=== PATIENT | female | born 1980 | race Caucasian/White ===

== ENCOUNTER → 2019-09-08 11:00 | Outpatient (BNVA) | payer BC, SELFPAY | PROVIDERS: Visit Provider Nurse Practitioner Family | DX: Z79.899 Other long term (current) drug therapy (principal); R53.83 Other fatigue; E78.2 Mixed hyperlipidemia; I10 Essential (primary) hypertension; E55.9 Vitamin D deficiency, unspecified; D64.9 Anemia, unspecified | CPT/HCPCS: 80061; 81001; 82306; 83036; 83540; 83550; 84439; 84443; 84481 ==

== ENCOUNTER 2019-12-04 11:08 | Outpatient (CLI) | payer BC, SELFPAY ==
[2019-12-04 11:20] VITALS: BMI 39.9
--- NOTE | 2019-12-04 11:32 | ECG_ITS ---
NAME OF STUDY: DOBUTAMINE STRESS ECHOCARDIOGRAM INDICATION: Chest Pain, family h/o premature CAD FINDINGS: 1. At the baseline, the patient's blood pressure was 130/72 mm Hg, oxygen saturation of 97% with a heart rate of 72 beats per minute. The electrocardiogram showed normal sinus rhythm with normal ST-Ts. The chest examination revealed normal breath sounds with no rales or rhonchi. The CVS examination revealed normal heart sounds with no S3 or S4. 2. The Dobutamine was infused over 4 minutes. The maximum heart rate obtained was 170 beats per minute. The patient attained 94% of the maximum predicted heart rate. The blood pressure at the end of the infusion was 183/79 mmHg. Patient did not have any chest pain or any significant electrocardiogram changes with the Dobutamine infusion. The physical examination remained unchanged. No arrhythmias were seen on the monitor. 3. The echocardiogram during the recovery phase also did not reveal any new changes. CONCLUSIONS: 1. Normal electrocardiogram response to Dobutamine infusion. 2. Normal blood pressure and heart rate response to Dobutamine infusion. 3. No Dobutamine-induced chest pain or cardiac arrhythmia. 4. Echocardiographic portion of the study will be reported separately. Electronically Signed On 12-06-2019 9:05:34 CDT by Zaida Heath M.D. [email or web address]
--- NOTE | 2019-12-04 11:37 | USCV_ITS ---
Sheba Bernal Age: 39 Gender: F : 1980 Exam Date: 12/04/2019 11:51 Ordering Phys: Zaida Heath MD [email or web address]) Technologist: Terrance Vaughan Exam Location: [facility] – [place] Indication: CHEST PAIN Rhythm: Sinus Patient History: FAMILY H/O CAD, DM, HTN, OBESITY, FORMER SMOKER Cardiac Medications: CCB Medications in past 24 hours: NONE Contrast: Stress Results Protocol: Steve Total dose(mL): Exercise Duration (min:sec): 4.04 METS: 7.0 Resting HR: 92 Resting BP: 130 / 72 Peak HR: 170 Peak BP: 183 / 79 Max Predicted HR: 179 95 % Max Predicted HR Target HR: 152 Double Product: 97162 Stress Summary: SHORTNESS OF BREATH THAT RESOLVED QUICKLY DURING RECOVERY BP Response: NORMAL Reason for Termination: TARGET HR REACHED Cardiac Symptoms: SOB ECG Analysis Resting ECG: Stress ECG: Arrhythmia: MEASUREMENTS (Male/Female) Normal Values FINDINGS 1. At the baseline, the patient's blood pressure was 130/72 mm Hg, oxygen saturation of 97% with a heart rate of 72 beats per minute. The electrocardiogram showed normal sinus rhythm with normal ST-Ts. The chest examination revealed normal breath sounds with no rales or rhonchi. The CVS examination revealed normal heart sounds with no S3 or S4. 2. The Dobutamine was infused over 4 minutes. The maximum heart rate obtained was 170 beats per minute. The patient attained 94% of the maximum predicted heart rate. The blood pressure at the end of the infusion was 183/79 mmHg. Patient did not have any chest pain or any significant electrocardiogram changes with the Dobutamine infusion. The physical examination remained unchanged. No arrhythmias were seen on the monitor. 3. At the baseline, the patient's echocardiogram revealed normal cardiac chamber sizes with normal LV ejection fraction of 60%. Segmental wall motion analysis revealed no regional wall motion abnormality. There were no intracardiac masses. 4. With the low and the peak Dobutamine infusion, there was good augmentation of all the segments with no Dobutamine-induced wall motion abnormalities. 5. During the recovery phase, the patient did not have any symptoms or any EKG changes. 6. The echocardiogram during the recovery phase also did not reveal any new changes. The echocardiogram during the recovery phase also did not reveal any new changes. CONCLUSIONS 1. Normal electrocardiogram response to Dobutamine infusion. 2. Normal echocardiographic response to Dobutamine infusion. 3. No Dobutamine-induced chest pain or cardiac arrhythmia. 4. Clinical correlation is recommended. Zaida Heath MD (Electronically Signed) Final Date: 06 Dec 2019 09:43 S
[2019-12-04 12:28] VITALS: BP 133/76; PULSE 95
== END 2019-12-04 11:09 | disposition home or self-care (01) ==
LOC: CDL 11:11
PROVIDERS: Visit Provider Internal Medicine Cardiovascular Disease
DX: R07.9 Chest pain, unspecified (principal); Z82.49 Family history of ischemic heart disease and other diseases of the circulatory system
CPT/HCPCS: 93017; 93350

== ENCOUNTER → 2021-03-21 16:05 | Outpatient (BNVA) | payer BC, SELFPAY | PROVIDERS: Visit Provider Nurse Practitioner Family | DX: Z01.419 Encounter for gynecological examination (general) (routine) without abnormal findings (principal); I10 Essential (primary) hypertension; D64.9 Anemia, unspecified; E78.2 Mixed hyperlipidemia; E55.9 Vitamin D deficiency, unspecified; E11.9 Type 2 diabetes mellitus without complications; R07.81 Pleurodynia; M50.30 Other cervical disc degeneration, unspecified cervical region; Z12.39 Encounter for other screening for malignant neoplasm of breast | CPT/HCPCS: 80053; 80061; 81003; 82306; 82607; 82746; 83036; 83540; 83735; 84439; 84443; 85025 ==

== ENCOUNTER 2021-03-24 12:48 | Outpatient (CLI) | payer BC, SELFPAY ==
--- NOTE | 2021-03-24 13:02 | XR_ITS ---
WS: [id number] Exam: XR ribs RT 2V* [id number] Date/Time of Exam: 03/24/2021 1:03 PM Reason For Exam: R07.81 - Pleurodynia No sign of rib fracture. The right lung is fully expanded and clear. No pleural or pulmonary reactive changes. XR/XR ribs RT 2V* [id number] IMPRESSION: 1. Negative right rib study. No pneumothorax.
--- NOTE | 2021-03-24 13:02 | XR_ITS ---
WS: [id number] Exam: XR cervical spine fl/ex [id number] Date/Time of Exam: 03/24/2021 1:03 PM Reason For Exam: M50.30 - Other cervical disc degeneration, unspecified ce... No fracture or dislocation. The odontoid is intact. Paraspinal soft tissues are unremarkable. There i s straightening. No flexion or extension instability is seen. XR/XR cervical spine fl/ex [id number] IMPRESSION: 1. Straightening of the C-spine. No fracture or malalignment. 2. No flexion or extension instability.
== END 2021-03-24 12:49 | disposition home or self-care (01) ==
PROVIDERS: Visit Provider Nurse Practitioner Family
DX: M50.30 Other cervical disc degeneration, unspecified cervical region (principal); R07.81 Pleurodynia
CPT/HCPCS: 71100; 72040

== ENCOUNTER → 2021-07-06 08:31 | Outpatient (BNVA) | payer BC, SELFPAY | PROVIDERS: PCP Nurse Practitioner Family; Referring Provider Nurse Practitioner Family; Visit Provider Obstetrics & Gynecology | DX: Z12.4 Encounter for screening for malignant neoplasm of cervix (principal) | CPT/HCPCS: 87624 ==

== ENCOUNTER 2021-12-20 10:14 | Outpatient (CLI) | payer BC, SELFPAY ==
--- NOTE | 2021-12-20 11:00 | MR_ITS ---
WS: [id number] MRI THORACIC SPINE WITHOUT CONTRAST TECHNIQUE: Sagittal T1, T2 and STIR imaging. Axial T2 imaging. Noncontrast imaging obtained. CLINICAL INFORMATION: M51.34 - Other intervertebral disc degeneration, thoracic... COMPARISON: None. FINDINGS: Mild thoracic curve. Mild thoracic kyphosis. Hypertrophic changes in the mid and lower thoracic spine . Mild chronic anterior wedging in the mid thoracic spine. No acute compression fractures. Cord signa l is normal. Tiny shallow central protrusions more prominent at T4-T5, T6-T7, and T8-T9 with slight e ffacement of ventral thecal sac. No significant central canal stenosis. Mild facet arthropathy in the lower thoracic spine. Mild LEFT T6-T7 and LEFT T8-T9 bony foraminal narrowing. Normal caliber thoracic aorta. Adrenal glands are normal. MR/MR thoracic spin wo con* [id number] IMPRESSION: 1. Mild thoracic curve. Mild thoracic kyphosis. 2. No acute compression fractures. Cord signal is normal. No significant centr al canal stenosis. 3. Mild chronic anterior wedging in the mid thoracic spine at T8 and T9. 4. Small central protrusions the mid thoracic spine most prominent at T8-T9 wi th slight effacement of the ventral thecal sac. 5. Mild LEFT T6-T7 and LEFT T8-T9 bony foraminal narrowing. 6. Mild facet arthropathy in the lower thoracic spine.
== END 2021-12-20 10:15 | disposition home or self-care (01) ==
LOC: RAD 10:15
PROVIDERS: PCP Nurse Practitioner Family; Visit Provider Family Medicine
DX: M51.34 Other intervertebral disc degeneration, thoracic region (principal); M51.24 Other intervertebral disc displacement, thoracic region
CPT/HCPCS: 72146

== ENCOUNTER → 2022-01-05 10:10 | Outpatient (BNVA) | payer BC, SELFPAY | PROVIDERS: PCP Nurse Practitioner Family; Referring Provider Nurse Practitioner Family; Visit Provider Orthopaedic Surgery | DX: M51.24 Other intervertebral disc displacement, thoracic region (principal); M54.9 Dorsalgia, unspecified | CPT/HCPCS: 72072; 72110 ==

== ENCOUNTER 2022-03-16 14:07 | Outpatient (CLI) | payer BC, SELFPAY ==
--- NOTE | 2022-03-16 15:15 | MR_ITS ---
WS: [id number] MRI LUMBAR SPINE NONCONTRAST TECHNIQUE: Sagittal T1, T2 and STIR imaging. Axial T1 and T2 imaging. CLINICAL INFORMATION: pain COMPARISON: None. FINDINGS: Mild lumbar curve. No acute compression. No high-grade central canal stenosis. L1-L2: Mild facet arthropathy. Spinal canal and foramen are patent. L2-L3: No significant disc bulging. Mild facet arthropathy. Spinal canal and foramen are patent. L3-L4: Mild annular bulging. Mild to moderate facet arthropathy. Spinal canal and foramen are patent. L4-L5: Eccentric disc bulging with mild bilateral foraminal narrowing. Moderate facet arthropathy wit h small facet effusions. Spinal canal is patent. L5-S1: No significant disc bulging. Moderate facet arthropathy. Spinal canal and foramen are patent. Small facet effusions. Partially visualized lobulation along the dorsal uterus suspicious for fibroid measuring 2.7 CCM. Thi s can be further evaluated with pelvic ultrasound. MR/MR lumbar spine wo con* [id number] IMPRESSION: 1. Mild lumbar curve. No acute compression. No high-grade central canal stenos is. 2. Small bilateral foraminal protrusions L4-L5 with mild bilateral foraminal n arrowing. 3. Moderate facet arthropathy L4-L5 and L5-S1 with small facet effusions. 4. Suspected fibroid along the dorsal fundal uterus. This can be further evalu ated with ultrasound.
== END 2022-03-16 14:08 | disposition home or self-care (01) ==
PROVIDERS: PCP Nurse Practitioner Family; Visit Provider Orthopaedic Surgery
DX: M51.26 Other intervertebral disc displacement, lumbar region (principal); M47.816 Spondylosis without myelopathy or radiculopathy, lumbar region; M47.817 Spondylosis without myelopathy or radiculopathy, lumbosacral region
CPT/HCPCS: 72148

== ENCOUNTER → 2022-06-12 10:30 | Outpatient (BNVA) | payer BC, SELFPAY | PROVIDERS: PCP Nurse Practitioner Family; Visit Provider Nurse Practitioner | DX: E78.2 Mixed hyperlipidemia (principal); E11.9 Type 2 diabetes mellitus without complications; D25.9 Leiomyoma of uterus, unspecified | CPT/HCPCS: 80053; 80061; 82306; 83036; 84443; 85025 ==

== ENCOUNTER → 2022-06-14 14:21 | Outpatient (BNVA) | payer BC, SELFPAY | PROVIDERS: PCP Nurse Practitioner Family; Visit Provider Anesthesiology Pain Medicine | DX: M47.816 Spondylosis without myelopathy or radiculopathy, lumbar region (principal); E11.9 Type 2 diabetes mellitus without complications; M54.9 Dorsalgia, unspecified | CPT/HCPCS: 36416; 82962 ==

== ENCOUNTER → 2023-04-17 10:28 | Outpatient (BNVA) | payer BC, SELFPAY | PROVIDERS: PCP Nurse Practitioner Family; Visit Provider Nurse Practitioner Family | DX: E11.9 Type 2 diabetes mellitus without complications (principal); D25.9 Leiomyoma of uterus, unspecified; M77.8 Other enthesopathies, not elsewhere classified; M47.816 Spondylosis without myelopathy or radiculopathy, lumbar region; M51.24 Other intervertebral disc displacement, thoracic region | CPT/HCPCS: 80053; 83036; 85025 ==

== ENCOUNTER 2023-05-01 11:51 | Outpatient (CLI) | payer BC, SELFPAY ==
--- NOTE | 2023-05-01 12:30 | US_ITS ---
WS: [id number] US pelv w/transvag [id number] HISTORY: D25.9 - Leiomyoma of uterus, unspecified COMPARISON: None available. Uterus: 9.5 cm x 6.2 cm x 4.8 cm. Mildly enlarged anteverted uterus. There is a hypoechoic mass exophytic from the RIGHT lateral uterus measuring 2.8 x 2.5 x 2.3 cm. There is an additional hypoechoic mass with shadowing along the lower LEFT uterine segment measuring 3.0 x 3.8 x 3.3 cm. Endometrium: 0.6 cm. Normal Right ovary: 3.3 cm x 2.6 cm x 2.6 cm. Normal size and vascularity, no cystic or solid masses. Left ovary: Not visualized. No free fluid in the cul-de-sac. IMPRESSION: 1. Fibroid uterus. 2 fibroids are identified. Largest along the lower LEFT uterine segment measuring 3.0 x 3.8 x 3.3 cm. 2. Normal endometrium.
== END 2023-05-01 11:52 | disposition home or self-care (01) ==
LOC: RAD 11:56
PROVIDERS: PCP Nurse Practitioner Family; Visit Provider Nurse Practitioner Family
DX: D25.9 Leiomyoma of uterus, unspecified (principal)
CPT/HCPCS: 76830; 76856

== ENCOUNTER → 2023-05-11 10:53 | Outpatient (BNVA) | payer BC, SELFPAY | PROVIDERS: PCP Nurse Practitioner Family; Visit Provider Nurse Practitioner Women's Health | DX: Z01.419 Encounter for gynecological examination (general) (routine) without abnormal findings (principal); N93.9 Abnormal uterine and vaginal bleeding, unspecified | CPT/HCPCS: 84146; 84443; 87624 ==

== ENCOUNTER 2023-05-29 10:51 | Outpatient (CLI) | payer BC, SELFPAY ==
--- NOTE | 2023-05-29 10:55 | MM_ITS ---
WS: [id number] BILATERAL 3D TOMOSYNTHESIS DIGITAL SCREENING MAMMOGRAPHY WITH CAD CLINICAL INFORMATION: Z12.31 - Encounter for screening mammogram for malignant ... HISTORY: Screening mammogram. No current complaints. COMPARISON: Baseline TECHNIQUE: Bilateral CC and MLO views. FINDINGS: Scattered fibroglandular densities bilaterally. No suspicious focal mass, asymmetry, calcifications, or architectural distortion. No evidence of malignancy. IMPRESSION: MM/[place] [id number] BI-RADS: 1-Negative FOLLOW UP: 1 Year Follow-up Recommend return to annual screening mammography.
== END 2023-05-29 10:52 | disposition home or self-care (01) ==
LOC: RAD 10:52
PROVIDERS: PCP Nurse Practitioner Family; Visit Provider Nurse Practitioner Women's Health
DX: Z12.31 Encounter for screening mammogram for malignant neoplasm of breast (principal)
CPT/HCPCS: 77063; 77067

== ENCOUNTER → 2023-06-12 09:28 | Outpatient (BNVA) | payer BC, SELFPAY | PROVIDERS: PCP Nurse Practitioner Family; Visit Provider Nurse Practitioner Women's Health | DX: Z01.818 Encounter for other preprocedural examination (principal) | CPT/HCPCS: 88305 ==

== ENCOUNTER → 2024-01-07 16:10 | Outpatient (BNVA) | payer BC, SELFPAY | PROVIDERS: PCP Nurse Practitioner Family; Visit Provider Nurse Practitioner Family | DX: I10 Essential (primary) hypertension (principal); R79.89 Other specified abnormal findings of blood chemistry; E78.2 Mixed hyperlipidemia; Z79.899 Other long term (current) drug therapy; D64.9 Anemia, unspecified | CPT/HCPCS: 80053; 80061; 81003; 82306; 82607; 83036; 83550; 84443; 85025 ==

== ENCOUNTER 2024-02-19 15:42 | Observation (INO) | payer BC, SELFPAY ==
--- NOTE | 2024-02-11 10:44 | P.ANESASSM_ITS ---
Pre-Anesthetic Assessment Height/Weight: Height 1.63 m Operation Date: 02/19/24 10:40 Proposed Procedures p Total Vaginal Hysterectomy 30485, 83010, 60687, N93.9, D25.2, N39.46(Not Applicable) - Roberto Carlos De La Garza MD s Anterior Repair Anterior Colporrhaphy(Not Applicable) - Roberto Carlos De La Garza MD s Sling(Not Applicable) - Roberto Carlos De La Garza MD Social occasional vape pack(s) per day Exam alert, oriented x 3, clear to auscultation bilaterally and regular rate & rhythm Airway Submandibular: within normal limits Cervical ROM: within normal limits Mallampati: Class II Comments: Comments: small chin History/ROS No significant history except as noted Pulmonary None reported CV/HEM Hypertension None reported Hepatic None reported GI None reported Metabolic Diabetes Mellitus diet and exercise controlled Neuropsych None reported Anesthetic Plan ASA status: 2 Anesthesia: General Risk of > 500 ml blood loss (7ml/kg in children): No Medications/Allergies Home Medications Medication Instructions Recorded Confirmed Last Taken Type amlodipine 5 mg tablet 5 mg PO DAILY 07/03/23 02/11/24 02/11/24 History norethindrone acetate 5 mg tablet 5 mg PO DAILY #30 tabs 09/20/23 02/11/24 02/11/24 Rx fluticasone propionate 50 1 spray intranasal DAILY PRN 01/10/24 02/11/24 Unknown Rx mcg/actuation nasal allergy symptoms 10 days #16 grams spray,suspension Allergies Allergy/AdvReac Type Severity Reaction Status Date / Time codeine Allergy Mild rash-can Verified 01/10/24 13:26 [facility] Medical History (Updated 01/23/24 @ 20:28 by GEORGIA Barreto) Eustachian tube dysfunction Anemia High total iron binding capacity Medication management Lipoma of scalp Acute bacterial sinusitis Otitis media Migraine No pertinent past medical history Denies asthma, seizures, DVT/PE PCP: GE[place]IA Tello Chronic neck pain DM II (diabetes mellitus, type II), controlled Diagnosed in 2019 with a hemoglobin A1c of 6.3. She states that symptoms are controlled with dietary changes. She does not have an strategic account manager Essential hypertension Diagnosed in 2019 managed by her primary care provider on medication. She does not have a soccer commentator. Surgical History History of tubal ligation 2001-mini laparotomy-open procedure History of cholecystectomy 2007-laparoscopic procedure Family History Sister Hypertension Heart disease Mother Hypertension Hyperlipidemia Father Hypertension Hyperlipidemia Son Thyroid disease Grandfather Stroke maternal Family/Other Stroke maternal uncle Denies family history of Colon cancer Ovarian cancer Breast cancer Uterine cancer Social History (Updated 02/11/24 @ 08:18 by Caryn Delacruz LPN) Smoking and tobacco/nicotine status: never used tobacco/nicotine Female Reproductive History Date of last menstrual period: 07/30/23 Data Anesthesia Cardiac Studies: Stress Echocardiogram 12/04/19
[2024-02-11 11:11] LABS: Add Urine Microscopic? NO; Charge for UA Resulting for Rev
[2024-02-11 11:18] LABS: Basophils # 0.1 10^3/uL (0.0-0.1); Basophils % 1.1 %; Eosinophils # 0.2 10^3/uL (0.0-0.8); Eosinophils % 2.1 %; Hematocrit 41.3 % (36-47); Lymphocytes # 1.9 10^3/uL (0.8-4.8); Lymphocytes % 26.9 %; Mean Corpuscular HGB Conc 31.5 g/dL (30-55); Mean Corpuscular Hemoglobin 27.3 pg (27-33); Mean Corpuscular Volume 86.6 fl (85-98); Mean Platelet Volume 10.8 fL (7.4-10.4); Monocytes # 0.5 10^3/uL (0.2-0.9); Monocytes % 6.3 %; Neutrophils # 4.47 10^3/uL (1.8-7.7); Nucleated Red Blood Cells % 0 %; Platelet Count 265 10^3/cmm (157-399); Red Blood Count 4.77 10^6/uL (3.85-5.65); Red Cell Distribution Width 13.7 % (12.1-15.1)
[2024-02-11 11:22] LABS: Bilirubin Urine Neg (Negative); Blood Urine Neg (Negative); Glucose Urine UA Norm (Normal); Ketones Urine 1+ (Negative); Leukocyte Esterase Urine Negative (Negative); Nitrate Urine Negative (Negative); Protein Urine Neg (Negative); Urine Appearance Clear (CLEAR); Urine Color Yellow (Yellow); Urobilinogen Urine Norm (Negative); pH Urine 5 (5-7)
[2024-02-11 11:45] LABS: Alanine Aminotransferase 24 U/L (0-33); Albumin Level 4.5 g/dL (3.5-5.2); Alkaline Phosphatase 61 U/L (35-105); Aspartate Amino Transferase 15 U/L (0-32); Carbon Dioxide 23 mmol/L (22-29); Chloride 100 mmol/L (98-107); Globulin 2.6 g/dL (1.3-4.6); Glucose 105 mg/dL (65-115); Potassium 4.2 mmol/L (3.5-5.1); Sodium 138 mmol/L (136-145); Total Protein 7.1 g/dL (6.6-8.7)
[2024-02-11 11:59] LABS: Anion Gap 19.2 (5-19); Blood Urea Nitrogen 17 mg/dL (6-20); Calcium 8.9 mg/dL (8.5-10.5); Glomerular Filtration Rate 133.4 mL/min (90-130); Osmolality Calculated 286 mOsm/kg (285-295); Total Bilirubin 0.3 mg/dL (0.15-1.2)
[2024-02-19] VITALS (14 sets, daily range): BP systolic 98–125; BP diastolic 53–84; PULSE 52–85; RESP 12–20; TEMP 36.3–36.8; O2SAT 83–100; BMI 42.9
[2024-02-19] MEDS: sodium chloride 0.9% 500 ML IV (11:38)
[2024-02-19] MEDS: scopolamine 1.5 Patch 1 PATCH TRANSDERMA (11:39)
[2024-02-19] MEDS: enoxaparin 30 mg/0.3 mL Syringe SUBCUT (11:45)
[2024-02-19] MEDS: ceFAZolin 3,000 MG in sodium chloride 0.9% (100 ml) 100 ML 200 MG IV (11:48)
[2024-02-19 12:08] LABS: OR HCG Qualitative Urine Negative (Negative)
--- NOTE | 2024-02-19 12:32 | W.PM.OPSUD ---
Surgery/Procedure H&P Update DATE OF PROCEDURE: February 19, 2024 DATE H&P PERFORMED: 02/11/24 H&P UPDATE INFORMATION: I have reviewed H&P completed within last 30 days, I have examined patient prior to procedure and No changes to prior documentation PREOP DIAGNOSIS: Abnormal uterine bleeding, uterine fibroid, pelvic pain, cystocele, urinary PLANNED PROCEDURE: Operation Date: 02/19/24 12:35 Proposed Procedures p Total Vaginal Hysterectomy 61807, 84708, 76926, N93.9, D25.2, N39.46(Not Applicable) - Roberto Carlos De La Garza MD s Anterior Repair Anterior Colporrhaphy(Not Applicable) - Roberto Carlos De La Garza MD s Sling(Not Applicable) - Roberto Carlos De La Garza MD
--- NOTE | 2024-02-19 12:38 | P.ANESUD_ITS ---
Pre-Anesthetic Update Pre-Anesthetic Assessment: Date of Surgery/Procedure: 02/19/24 Preop Dinah gnosis: Abnormal uterine bleeding, uterine fibroid, pelvic pain, cystocele, urinary Proposed Procedure: Operation Date: 02/19/24 12:35 Proposed Procedures p Total Vaginal Hysterectomy 60265, 57337, 55965, N93.9, D25.2, N39.46(Not Applicable) - Roberto Carlos De La Garza MD s Anterior Repair Anterior Colporrhaphy(Not Applicable) - Roberto Carlos De La Garza MD s Sling(Not Applicable) - Roberto Carlos De La Garza MD Any changes to Pre-Anesthetic Assessment?: No Last Intake: Intake Last Liquid Date 02/18/24 Last Liquid Time 23:00 Last Solid Date 02/18/24 Last Solid Time 23:00 Vitals: Temperature 97.3 F L 02/19/24 11:21 Temperature Source Temporal Artery S can 02/19/24 11:21 Pulse Rate 64 02/19/24 11:21 Pulse Rhythm Regular 02/19/24 11:29 Pulse Strength 3+ Normal 02/19/24 11:29 Respiratory Rate 17 02/19/24 11:21 Blood Pressure 118/79 02/19/24 11:21 Blood Pressure Lois n 92 02/19/24 11:21 Pulse Oximetry 96 02/19/24 11:21 Oxygen Delivery Me thod Room Air 02/19/24 11:29 Exam: Pre-Anes Outpt Exam: alert, oriented x 3, clear to auscultation bilaterally and regular rate & rhythm Cardiac Studies: Stress Echocardiogram 12/04/19
[2024-02-19] MEDS: sodium chloride 0.9% 1,000 ML 30 ML IV (12:48)
[2024-02-19] MEDS: lidocaine-epi 2% PF 1:200,000 20 mL SDV INJECTION (13:47)
--- NOTE | 2024-02-19 15:18 | P.OP_ITS ---
Operative Report Date of procedure: February 19, 2024 Pre-op diagnosis: Pelvic pain Uterine fibroid Abnormal uterine bleeding Stress urinary incontinence Post-op diagnosis: Pelvic pain Uterine fibroid Abnormal uterine bleeding Cystocele stage II Stress urinary incontinence Procedure done: Total vaginal hysterectomy Anterior colporrhaphy augmented with allograft Mid urethral sling Cystoscopy Implants: Coloplast dermis allograft Coloplast Altis sling Specimens removed/disposition: Uterus Surgeon: Roberto Carlos De La Garza MD Estimated blood loss (mL): 450 IV fluids (mL): 1,500 Urine output (mL): 300 Complications: Bleeding Findings: Fibroid uterus Cystocele Urethral hypermobility Procedure: After informed consent and risks, benefits, indications and alternatives reviewed with the patient was taken to the operating room. The patient was placed in dorsal lithotomy position prepped, and draped in the usual sterile fashion. The pre-procedure timeout verifying the correct patient, procedure, site and side, could not requirements was performed and acknowledge by the OR team. A Cohen catheter was placed. A Bookwalter vaginal retractor was placed into the vagina in usual manner visualize the cervix. Cervix was grasped with a single tooth tenaculum and circumferentially infiltrated with 2% lidocaine with epinephrine. Then cervix was circumferentially incised with bovie and the bladder was dissected off the pubovesical cervical fascia anteriorly with a sponge stick and Metzenbaum scissors. The anterior peritoneal reflection was identified and the anterior cul-de-sac was entered sharply with Metzenbaum scissors. The same procedure was performed posteriorly and a posterior colpotomy was made through the posterior cul-de-sac space without difficulty and the posterior blade of the Bookwalter vaginal retractor was advanced posteriorly into the cul-de-sac. At this time, the left and right uterosacral ligaments were isolated and ligated with 0 Vicryl. The LigaSure device was placed over the uterosacral ligaments on either side and was then used in a serial fashion up through the cardinal ligaments bilaterally cross-clamped, cut, and sealed with the LigaSure device. Finally, the uterine arteries were cross-clamped, cut, sealed and ligated with the LigaSure device. Hemostasis was assured. The broad ligaments were then serially clamped, sealed and cut with the LigaSure device on both sides. Excellent hemostasis was visualized. Both cornua were clamped, sealed and cut with the LigaSure/Voyant device. Then the pedicles were then suture ligated with excellent hemostasis. The uterus was excised and submitted for pathologic evaluation. No other abnormalities were noted in the pelvic cavity. The peritoneum was then closed in a pursestring fashion with 0 Vicryl suture. The vaginal cuff angles were closed with [id number] #0 Vicryl suture on both sides and transfixed with the ipsilateral cardinal and uterosacral ligaments. The remainder of the vaginal cuff was closed with #0 Vicryl in a running locked fashion. The anterior vaginal mucosa beneath the midurethra was infiltrated with 2% lidocaine with epinephrine. A vertical midline incision was made beneath the midurethra, nearly 1.5 cm length. Careful submucosal dissection was performed bilaterally up to the interior portion of the inferior pubic ramus. The insertion of adductor longus tendon on the patient?s pubic ramus was identified as reference land laura. Palpated the notch along the internal edge of ischiopubic ramus where the adductor longus tendon and the inferior pubic ramus meet. The Altis single incision sling (SIS) was selected. Then the needle of the SIS inserted aiming at the location of this notch. One of the integrated self- fixating tips place onto the needle by sliding it over the end of the needle. The needle/sling assembly was inserted toward the location of identified reference notch making sure that the flat of the handle is perpendicular to the desired path. The needle was tracked along the posterior surface of the ischiopubic ramus until the midline laura on the mesh is approximately at the midline position under the urethra. The needle was removed and the same was repeated on the contralateral side until the appropriate sling tension under the urethra was achieved ensuring that the mesh lays flat. The needle was removed and vaginal incision was closed in a running interlocking fashion with 2-0 Vicryl. Then the vaginal mucosa was then injected in the midline with normal saline. The vaginal mucosa was scored in the midline with the Bovie approximately 1 cm medial to the urethral meatus to 1 cm distal to the vaginal cuff. This vaginal mucosa was then undermined and then incised in the midline with the Metzenbaum scissors. The lateral aspects of the vaginal mucosa were then grasped with the Allis clamps and the vaginal mucosa was then dissected off the underlying fascia with the Metzenbaum scissors. Again, there was noted to be quite a bit of oozing at the incision, which was controlled with cautery. After adequate dissection was performed, bilaterally. A Coloplast dermis allograft was modified at time of application to fit spacea, 3 x 3 cm piece . The dermis allograft placed in front of cystocele ready to be implanted facing the vagina mucosa. Suture is placed at distal end of graft and placed towards vaginal cuff. Final suture is placed on proximal portion of the graft to complete the placement overlying the bladder. Then Interrupted vertical mattress sutures of 0 Vicryl were used to elevate the cystocele superiorly. Bludigo was given IV. The excessive vaginal mucosa was then trimmed with the Metzenbaum scissors and the vaginal mucosa was then reapproximated in the running interlocking fashion with 2-0 Vicryl. At this time, instruments were removed from the vagina at hemostasis assured. Then the Cohen catheter was removed and cystoscope was inserted. The bladder was filled with sterile water. Complete evaluation of the bladder mucosa was performed noting no lacerations, dimpling, tears, bleeding of the mucosa or muscular layers. Both ureteral orifices were identified. Prompt excretion of urine from both ureteral orifices was noted. Cystoscope was withdrawn. Cohen catheter was then placed yielding clear blood urine. A vaginal packing was placed and the patient was taken out of dorsal lithotomy position and awakened from the general anesthesia. The patient tolerated the procedure well and was taken to the PACU recovery room in a stable condition. Sponge, lap, needle and instruments counts were correct x3.
--- NOTE | 2024-02-19 16:15 | ANE.PACU2 ---
Inpatient post-anesthesia follow up: Airway intact: Yes Vital signs: Temperature 98.1 F Pulse Rate 45 Respiratory Rate 16 Blood Pressure 112/70 Pulse Oximetry 99 Oxygen Delivery Me thod Room Air Oxygen Flow Rate 2 Fraction of Inspir ed Oxygen Hydration adequate: Yes Nausea and vomiting: No Pain level: 1 Mental status: Baseline
[2024-02-19] MEDS: HYDROcodone-acetaminophen 5-325 mg Tablet PO ×2 (16:43→22:40)
[2024-02-19] MEDS: ketorolac 30 mg/mL INJ IVP ×2 (16:50→22:38)
--- NOTE | 2024-02-19 19:46 | P.DS_ITS ---
Discharge Providers LUMBER LOADER Date of Admission: 02/19/24 15:42 Date of Discharge: 02/19/24 Attending Provider at Admission: Roberto Carlos De La Garza MD Attending Provider at Discharge: Roberto Carlos De La Garza MD Primary Care Provider: [place] Cooney Reason for Visit Reason for Visit: D25.2 Hospital Course Hospital Course Mrs. Bernal 43-year-old female with a history of abnormal uterine bleeding, pelvic pain, uterine fibroid, and stress urinary incontinence. Admitted for total vaginal hysterectomy with anterior colporrhaphy augmented with allograft and mid urethral sling. The procedures were performed without complication with the exception of moderate bleeding. Postop observation uneventful. She is afebrile and hemodynamically stable. Tolerating diet well. She was counseled regarding pelvic rest for 6 weeks (no sex, no tampons, no vaginal douches). Return to the emergency room if any fever, increased bleeding or pain. Physical Exam Narrative: GA: Alert and oriented ?3. HEENT: WNL. Heart: Regular rate and rhythm. Lungs: Clear to auscultation bilaterally. Abdomen: Bowel sounds present, nontender. ROCK CRUSHER: spotting bleeding. Extremities: No edema, no cyanosis, no calves pain. Urinary Catheter Management: Cohen: Cath Placed During This Visit: yes Urinary Catheter Date of Insertion: 02/19/24 Urinary Catheter Time of Insertion: 13:33 History History History 2 Term 2 0 Miscarriages/Ectopic 0 Living Children 2 Discharge Data Studies Completed and Pending Pending at discharge Category Date Time Status Hemagram Timed Lab 02/20/24 05:00 Uncollected Pathology: Surgical [PTH] Routine Pth 02/19/24 14:53 Received Laboratory Results WBC 7.10 10^3/uL (3.29-11.43) 02/11/24 10:15 RBC 4.77 10^6/uL (3.85-5.65) 02/11/24 10:15 Hgb 13.00 g/dL (11.27-16.99) 02/11/24 10:15 Hct 41.3 % (36-47) 02/11/24 10:15 MCV 86.6 fl (85-98) 02/11/24 10:15 MCH 27.3 pg (27-33) 02/11/24 10:15 MCHC 31.5 g/dL (30-55) 02/11/24 10:15 RDW 13.7 % (12.1-15.1) 02/11/24 10:15 Plt Count 265 10^3/cmm (157-399) 02/11/24 10:15 MPV 10.8 fL (7.4-10.4) H 02/11/24 10:15 Neut % (Auto) 63.0 % 02/11/24 10:15 Lymph % (Auto) 26.9 % 02/11/24 10:15 [place] % (Auto) 6.3 % 02/11/24 10:15 Eos % (Auto) 2.1 % 02/11/24 10:15 Baso % (Auto) 1.1 % 02/11/24 10:15 Neut # (Auto) 4.47 10^3/uL (1.8-7.7) 02/11/24 10:15 Lymph # (Auto) 1.9 10^3/uL (0.8-4.8) 02/11/24 10:15 [place] # (Auto) 0.5 10^3/uL (0.2-0.9) 02/11/24 10:15 Eos # (Auto) 0.2 10^3/uL (0.0-0.8) 02/11/24 10:15 Baso # (Auto) 0.1 10^3/uL (0.0-0.1) 02/11/24 10:15 Nucleated RBC % (auto) 0 % 02/11/24 10:15 Nucleated RBCs # 0.0 /100WBC 02/11/24 10:15 Sodium 138 mmol/L (136-145) 02/11/24 10:15 Potassium 4.2 mmol/L (3.5-5.1) 02/11/24 10:15 Chloride 100 mmol/L (98-107) 02/11/24 10:15 Carbon Dioxide 23 mmol/L (22-29) 02/11/24 10:15 Anion Gap 19.2 (5-19) H 02/11/24 10:15 BUN 17 mg/dL (6-20) 02/11/24 10:15 Creatinine 0.5 mg/dL (0.5-0.9) 02/11/24 10:15 GFR Calculation 133.4 mL/min (90-130) H 02/11/24 10:15 Glucose 105 mg/dL (65-115) 02/11/24 10:15 Calculated Osmolality 286 mOsm/kg (285-295) 02/11/24 10:15 Calcium 8.9 mg/dL (8.5-10.5) 02/11/24 10:15 Total Bilirubin 0.3 mg/dL (0.15-1.2) 02/11/24 10:15 AST 15 U/L (0-32) 02/11/24 10:15 ALT 24 U/L (0-33) 02/11/24 10:15 Alkaline Phosphatase 61 U/L (35-105) 02/11/24 10:15 Total Protein 7.1 g/dL (6.6-8.7) 02/11/24 10:15 Albumin 4.5 g/dL (3.5-5.2) 02/11/24 10:15 Globulin 2.6 g/dL (1.3-4.6) 02/11/24 10:15 Urine Color Yellow (Yellow) 02/11/24 10:15 Urine Appearance Clear (CLEAR) 02/11/24 10:15 Urine pH 5 (5-7) 02/11/24 10:15 Ur Specific [place] 1.020 (1.005-1.030) 02/11/24 10:15 Urine Protein Neg (Negative) 02/11/24 10:15 Urine Glucose (UA) Norm (Normal) 02/11/24 10:15 Urine Ketones 1+ (Negative) H 02/11/24 10:15 Urine Blood Neg (Negative) 02/11/24 10:15 Urine Nitrate Negative (Negative) 02/11/24 10:15 Urine Bilirubin Neg (Negative) 02/11/24 10:15 Urine Urobilinogen Norm mg/dL (Negative) 02/11/24 10:15 Ur Leukocyte Esterase Negative (Negative) 02/11/24 10:15 Urine HCG, Qual Negative (Negative) 02/19/24 11:30 Blood Type O Positive 02/19/24 11:30 Rho(D) Type Rh positive 02/19/24 11:30 Antibody Screen Negative 02/19/24 11:30 Vitals Last Vital Signs Temp 98.0 F 02/19/24 18:30 Pulse 56 L 02/19/24 18:30 Resp 14 02/19/24 18:30 BP 119/82 02/19/24 18:30 Pulse Ox 94 02/19/24 18:30 O2 Del Method Nasal Cannula 02/19/24 18:30 O2 Flow Rate 2 02/19/24 18:30 Results Labs OB ([facility]): Blood Type O Positive 02/19/24 Antibody Screen Negative 02/19/24 Hct 41.3 % (36-47) 02/11/24 Hgb 13.00 g/dL (11.27-16.99) 02/11/24 Rho(D) Type Rh positive 02/19/24 Plt Count 265 10^3/cmm (157-399) 02/11/24 TSH 0.79 uIU/mL (0.27-4.20) 01/07/24 Free T4 0.78 ng/dL (0.82-1.77) L 03/21/21 Hemoglobin A1c 6.4 % (4.0-6.0) H 01/07/24 Pap Smear Interpret See note A 05/11/23 Prolactin 7.35 ng/mL (4.8-23.3) 05/11/23 Discharge Plan Discharge Patient Disposition: Home Condition: Stable Prescriptions: New hydrocodone-acetaminophen 5-325 mg tablet 1 tab PO Q4H PRN (Reason: pain) Qty: 30 0RF ferrous sulfate [Iron (ferrous sulfate)] 325 mg (65 mg iron) tablet 325 mg PO BID Qty: 60 0RF ibuprofen 800 mg tablet 800 mg PO TID PRN (Reason: pain) Qty: 60 0RF acetaminophen 325 mg capsule 325 mg PO Q4H PRN (Reason: fever or postoperative pain) Qty: 60 0RF docusate sodium [Colace] 100 mg capsule 100 mg PO BID Qty: 60 0RF Continued amlodipine 5 mg tablet 5 mg PO DAILY fluticasone propionate 50 mcg/actuation spray,suspension 1 spray intranasal DAILY PRN (Reason: allergy symptoms) 10 Days Qty: 16 0RF Rx Instructions: administer into each nostril norethindrone acetate 5 mg tablet 5 mg PO DAILY Rx Instructions: Take 1 tablet by mouth once daily Discharge Orders: Discharge Order (Routine); Ordered 02/19/24 Ordered By: Roberto Carlos De La Garza Referrals: Roberto Carlos De La Garza MD [Physician] - 2 weeks Discharge Diet: Usual diet Discharge Activity: Limit activity as instructed Patient Instructions: Acute Wound Care (DC), Opioid Safety, Post Anesthesia Care, Vaginal Hysterectomy (GEN), Anterior Vaginal Repair (GEN), Bladder Sling for Women (GEN) Activity Restrictions/Additional Instructions: 1. Please call [facility] on next working day to make your post-operative appointment in 2 weeks. 2. Please stay home until you come back to the clinic on first post- hospatilization check up. 3. Please follow instructions on your medications CAREFULLY. 4. If you have abdominal incision, do not cover it unless dressing is necessary because of drainage. OK to shower, but avoid bath. Leave steri-strips until they fall off. If they are still on one week after surgery, you may remove them. 5. If you had vaginal surgery or vaginal repair, Dr. De La Garza may instruct you to take SITZ bath. 6. Yellow, blood tinged odorous vaginal discharge is usually normal after hysterectomy or vaginal surgeries. 7. No SEXUAL INTERCOURSE, tampons, or douches until you are completely released from the post-operative care. 8. Avoid constipation by eating right and maybe using some Metamucil or Milk of Magnesia. 9. All prescription refills are given during the working hours. Please do no wait till it runs out. Call the clinic at [phone] before your medication runs out. The clinic will get in touch with your doctor to prescribe medications if necessary. 10. Please remain within 40 mile radius from our hospital because emergencies do happen now and then during the post-operative period. 11. If you have stairs at home, take one step at a time slowly and minimize the number of trips. It helps to stay in one floor for the next few days. No lifting except what you can lift by one hand until you are released from the post-operative care. 12. Driving is discouraged until you are well healed. It may be 3-4 weeks before you feel strong enough to drive. You should be able to turn and look through the rear window without pain and you should be able to push the brake pedal very hard without pain before you drive. No fast rules, but SAFETY should be your primary concern. DO NOT drive if you are on sedating medications such as narcotics. 13. Call the clinic (during working hours) to make urgent appointment or go to the Emergency room, if any of the following occurs: i. Vaginal bleeding becomes heavy, more than a period. ii. Incision becomes red and sore, or drains pus. iii. Your TEMPERATURE is over 100.4F or you have chill. iv. IV site becomes red and swollen (a little ``knot?? is usually OK) v. Persistent nausea and vomiting vi. Persistent constipation or diarrhea vii. Rash or allergic reaction to medications. Discharge Attestations LUMBER LOADER Time Spent in Discharge Care*: greater than 30 min Coding Level of Care Code Acute Code for Chg Fwd
[2024-02-19] MEDS: simethicone 80 mg Chew PO (21:19)
[2024-02-19] MEDS: docusate sodium 100 mg Capsule PO (21:20)
[2024-02-19] MEDS: dextrose 5%-lactated ringers 1,000 ML 125 ML IV (21:26)
--- NOTE | 2024-02-20 05:13 | PC.NURSE ---
vag packing removed at this time. Pt tolerated well.
[2024-02-20] MEDS: ketorolac 30 mg/mL INJ IVP (05:14)
[2024-02-20 05:16] VITALS: BP 112/70; PULSE 45; RESP 16; TEMP 36.7; O2SAT 99
[2024-02-20 05:19] LABS: Hematocrit 34.3 % (36-47); Mean Corpuscular HGB Conc 31.8 g/dL (30-55); Mean Corpuscular Hemoglobin 27.5 pg (27-33); Mean Corpuscular Volume 86.4 fl (85-98); Mean Platelet Volume 10.6 fL (7.4-10.4); Platelet Count 252 10^3/cmm (157-399); Red Blood Count 3.97 10^6/uL (3.85-5.65); Red Cell Distribution Width 13.5 % (12.1-15.1); White Blood Count 8.38 10^3/uL (3.29-11.43)
[2024-02-20 06:00] VITALS: BMI 42.9
[2024-02-20] MEDS: HYDROcodone-acetaminophen 5-325 mg Tablet PO (06:58)
[2024-02-20] MEDS: simethicone 80 mg Chew PO (06:58)
[2024-02-20] MEDS: amlodipine 5 mg Tablet PO (08:49)
[2024-02-20] MEDS: docusate sodium 100 mg Capsule PO (08:49)
[2024-02-20] MEDS: ibuprofen 800 mg tablet PO (08:49)
[2024-02-20 11:35] VITALS: BP 145/76; PULSE 71; RESP 16; TEMP 36.7
== END 2024-02-20 11:38 | disposition home or self-care (01) ==
LOC: OBGYN 19:48
PROVIDERS: Admitting Provider Obstetrics & Gynecology; PCP Nurse Practitioner Family; Visit Provider Obstetrics & Gynecology
PROC: (CPT 57240; principal; 2024-02-19 12:35)
PROC: 0JQC0ZZ Repair Pelvic Region Subcutaneous Tissue and Fascia, Open Approach (ICD-10-PCS; CPT 57240; 2024-02-19 12:35)
PROC: (CPT 57288; 2024-02-19 12:35)
DX: D25.9 Leiomyoma of uterus, unspecified (principal); N81.10 Cystocele, unspecified; N39.498 Other specified urinary incontinence; N72 Inflammatory disease of cervix uteri
CPT/HCPCS: 57240; 57288; 58260; 36415; 51798; 80053; 81003; 81025; 85025; 85027; 86850; 86900; 88307; C1713; C1762; G0378; J0131; J0690; J1100; J1170; J1200; J1650; J1885; J2250; J2405; J2704; J3010; J3490; J7030; J7040; J7121

== ENCOUNTER → 2024-04-22 11:08 | Outpatient (BNVA) | payer BC, SELFPAY | PROVIDERS: PCP Nurse Practitioner Family; Visit Provider Obstetrics & Gynecology | DX: Z90.710 Acquired absence of both cervix and uterus (principal); R10.2 Pelvic and perineal pain; N83.291 Other ovarian cyst, right side | CPT/HCPCS: 76830 ==

== ENCOUNTER → 2024-04-29 10:57 | Outpatient (BNVA) | payer BC, SELFPAY | PROVIDERS: PCP Nurse Practitioner Family; Visit Provider Nurse Practitioner Women's Health | DX: N89.8 Other specified noninflammatory disorders of vagina (principal) | CPT/HCPCS: 87491; 87591 ==

== ENCOUNTER → 2024-05-09 10:33 | Outpatient (BNVA) | payer BC, SELFPAY | PROVIDERS: PCP Nurse Practitioner Family; Visit Provider Obstetrics & Gynecology | DX: B99.9 Unspecified infectious disease (principal) | CPT/HCPCS: 84315; 87086 ==

== ENCOUNTER 2024-06-23 12:48 | Outpatient (CLI) | payer BC, SELFPAY ==
--- NOTE | 2024-06-23 13:00 | MM_ITS ---
WS: [id number] Bilateral screening 3D tomosynthesis digital mammogram, 06/23/2024 1:01 PM Clinical Data: Z12.31 - Encounter for screening mammogram for malignant ... Comparison: 05/29/2023 Findings: No spiculated masses or clustered calcifications are seen. There are no secondary signs of carcinoma . MM/MM scr BI tomosynthesis [id number] Impression: Negative bilateral mammogram unchanged. Recommend annual screening mammograms. BIRADS: 1 - Negative. FOLLOW UP: 1 Year Follow-up DENSITY: The breasts are almost entirely fatty. The CAD tray checker was used
== END 2024-06-23 12:49 | disposition home or self-care (01) ==
LOC: RAD 12:48
PROVIDERS: PCP Nurse Practitioner Family; Visit Provider Nurse Practitioner Women's Health
DX: Z12.31 Encounter for screening mammogram for malignant neoplasm of breast (principal)
CPT/HCPCS: 77063; 77067

== ENCOUNTER 2024-09-16 13:43 | Observation (INO) | payer BC, SELFPAY ==
--- NOTE | 2024-09-08 11:10 | SUR.PREOP ---
Patient came in for in person pre op. no orders for lab work put in by . Patient does not meet anesthesia criteria for labwork. Anesthesia on floor dealing with issue on inpatient when patient here so she was dismissed after charting done.
[2024-09-16] VITALS (13 sets, daily range): BP systolic 106–158; BP diastolic 61–103; PULSE 62–86; RESP 12–19; TEMP 36.4–37.2; O2SAT 94–100; BMI 37.0
[2024-09-16] MEDS: scopolamine 1 mg PATCH 1 PATCH TRANSDERMA (11:43)
[2024-09-16] MEDS: sodium chloride 0.9% 1,000 ML 30 ML IV (11:43)
--- NOTE | 2024-09-16 11:55 | ANES.PREANE2 ---
Pre-Anesthetic Assessment Height/Weight: Height 5 ft 4 in Weight 216 lb Temp Pulse Resp BP Pulse Ox O2 Del Method 97.8 F 86 18 158/103 99 Room Air 09/16/24 11:20 09/16/24 11:20 09/16/24 11:20 09/16/24 11:20 09/16/24 11:20 09/16/24 11:20 Preop Diagnosis: Sling erosion Operation Date: 09/16/24 14:00 Proposed Procedures p Sling repair/revision 71351, 53420, T83.712A, N89.8 Granulation tissue fulguration(Not Applicable) - Roberto Carlos De La Garza MD s Cauterization of Granulation Tissue(Not Applicable) - Roberto Carlos De La Garza MD Was Beta Jose taken within 24 hours: N/A Was Clonidine taken within 24 hours: N/A Last intake: Intake Last Liquid Date 09/16/24 Last Liquid Time 01:00 Last Solid Date 09/15/24 Last Solid Time 19:30 Social Tobacco and No alcohol Exam alert, oriented x 3, clear to auscultation bilaterally and regular rate & rhythm Airway Submandibular: within normal limits Cervical ROM: within normal limits Mallampati: Class III Dentition: full Anesthetic Plan ASA status: 3 Anesthesia: General Other: No prior issues with anesthesia NPO since yesterday Patient had general anesthesia in January without issues. Grade 1 view with MAC 3 blade at that time History of hypertension on amlodipine preop BP 158/103 Patient vapes nicotine Patient states that she was told she is prediabetic and does not have diabetes. A1c 6.4 Normal stress echo in 2019 Plan for general anesthesia Medications/Allergies Home Medications ?Medication ?Instructions ?Recorded ?Confirmed ?Last Taken ?Type ibuprofen 125 mg-acetaminophen 250 1 tab PO DAILY 04/23/24 09/16/24 09/15/24 History mg tablet (Dual Action Pain Reliever) cholecalciferol (vitamin D3) 325 325 mcg PO DAILY 05/09/24 09/16/24 09/15/24 History mcg (13,000 unit) capsule glucosamine 750 fm-[id number]-noi 1 tab PO BID 05/09/24 09/16/24 09/15/24 History no1 644 mg-C 30 mg-reed 1 mg tablet (Osteo Bi-Flex Triple Strength) cetirizine 10 mg capsule (Zyrtec) 10 mg PO DAILY PRN allergies 12/10/24 02/18/25 02/17/25 History estradiol 0.01% (0.1 mg/gram) 1 g vaginal .COMPLEX #42.5 grams 07/16/24 09/08/24 09/06/24 Rx vaginal cream (Estrace) amlodipine 5 mg tablet 5 mg PO DAILY 09/08/24 09/16/24 09/15/24 History Allergies Allergy/AdvReac Type Severity Reaction Status Date / Time codeine Allergy Mild rash-can Verified 09/16/24 11:16 take hydrocodone Current Medications Generic Name Dose Route Start Last Admin Trade Name Freq PRN Reason Stop Dose Admin Sodium Chloride 1,000 mls @ 30 mls/hr 09/16/24 11:15 09/16/24 11:43 Sodium Chloride 0.9% IV 09/17/24 11:14 30 mls/hr .Q24H MINDY Administration PFSH Anesthesia Medical History Medication management Lipoma of scalp Migraine No pertinent past medical history Denies asthma, seizures, DVT/PE PCP: Duran Plummer, [place] Chronic neck pain DM II (diabetes mellitus, type II), controlled Diagnosed in 2019 with a hemoglobin A1c of 6.3. She states that symptoms are controlled with dietary changes. She does not have an asw/asuw tactical air controller Essential hypertension Diagnosed in 2019 managed by her primary care provider on medication. She does not have a advertising rep. Surgical History History of total vaginal hysterectomy (~02/19/24) with Anterior colporrhaphy augmented with allograft, Mid urethral sling Cystoscopy performed by Dr. De La Garza at [facility]. Benign pathology. History of tubal ligation 2001-mini laparotomy-open procedure History of cholecystectomy 2007-laparoscopic procedure Family History Sister Hypertension Heart disease Mother Hypertension Hyperlipidemia Father Hypertension Hyperlipidemia Son Thyroid disease Grandfather Stroke maternal Family/Other Stroke maternal uncle Denies family history of Colon cancer Ovarian cancer Breast cancer Uterine cancer Social History Smoking and tobacco/nicotine status: current some day tobacco/nicotine user (vape use) Data Anesthesia 09/16/24 11:25 09/16/24 11:25 Cardiac Studies: Stress Echocardiogram 12/04/19
[2024-09-16 11:56] LABS: Basophils # 0.1 10^3/uL (0.0-0.1); Basophils % 0.9 %; Eosinophils # 0.2 10^3/uL (0.0-0.8); Eosinophils % 2.2 %; Hematocrit 41.3 % (36-47); Lymphocytes # 1.9 10^3/uL (0.8-4.8); Lymphocytes % 25.1 %; Mean Corpuscular HGB Conc 32.7 g/dL (30-55); Mean Corpuscular Hemoglobin 28.5 pg (27-33); Mean Corpuscular Volume 87.3 fl (85-98); Mean Platelet Volume 10.1 fL (7.4-10.4); Monocytes # 0.4 10^3/uL (0.2-0.9); Monocytes % 5.4 %; Neutrophils # 5.12 10^3/uL (1.8-7.7); Neutrophils % 66.1 %; Nucleated Red Blood Cells % 0 %; Platelet Count 257 10^3/cmm (157-399); Red Blood Count 4.73 10^6/uL (3.85-5.65); Red Cell Distribution Width 12.7 % (12.1-15.1); White Blood Count 7.74 10^3/uL (3.29-11.43)
[2024-09-16 12:25] LABS: Alanine Aminotransferase 28 U/L (0-33); Albumin Level 4.4 g/dL (3.5-5.2); Alkaline Phosphatase 72 U/L (35-105); Aspartate Amino Transferase 24 U/L (0-32); Blood Urea Nitrogen 14 mg/dL (6-20); Calcium 9.2 mg/dL (8.5-10.5); Carbon Dioxide 26 mmol/L (22-29); Chloride 101 mmol/L (98-107); Creatinine Clr Calc Pharmacy 133.1859; Globulin 3.4 g/dL (1.3-4.6); Glomerular Filtration Rate 107.6 mL/min (90-130); Glucose 102 mg/dL (65-115); Osmolality Calculated 291 mOsm/kg (285-295); Sodium 140 mmol/L (136-145); Total Bilirubin 0.3 mg/dL (0.15-1.2); Total Protein 7.8 g/dL (6.6-8.7)
[2024-09-16] MEDS: ceFAZolin 2,000 mg SDV 2000 MG IVP (12:55)
--- NOTE | 2024-09-16 13:04 | W.PM.OPSUD ---
Surgery/Procedure H&P Update DATE OF PROCEDURE: September 16, 2024 DATE H&P PERFORMED: 09/08/24 H&P UPDATE INFORMATION: I have reviewed H&P completed within last 30 days, I have examined patient prior to procedure and No changes to prior documentation PREOP DIAGNOSIS: Sling erosion PLANNED PROCEDURE: Operation Date: 09/16/24 14:00 Proposed Procedures p Sling repair/revision 55428, 11267, T83.712A, N89.8 Granulation tissue fulguration(Not Applicable) - Roberto Carlos De La Garza MD s Cauterization of Granulation Tissue(Not Applicable) - Roberto Carlos De La Garza MD
[2024-09-16] MEDS: lidocaine-epi 2% PF 1:200,000 20 mL SDV XX (13:24)
--- NOTE | 2024-09-16 13:43 | PM.OP ---
Operative Report Date of procedure: September 16, 2024 Pre-op diagnosis: Granulation tissue at site of mid urethral sling Post-op diagnosis: Granulation tissue Procedure done: Excision and fulguration of granulation tissue Surgeon: Roberto Carlos De La Garza MD Estimated blood loss (mL): 10 IV fluids (mL): 500 Urine output (mL): 100 Procedure: After obtaining informed consent, the patient was taken to the operating room and placed in the supine position, given general anesthesia, and prepped and draped in sterile fashion. The abdomen, vulva and vagina were prepped and draped in a sterile manner. A time out procedure was performed. The anterior vaginal mucosa beneath the midurethral sling showed granulation tissue growth of approximately 2 cm. No sling exposure or erosion was noted. The granulation tissue was excised and fulgurated. The area was approximated with 3-0 Vicryl. The Cohen catheter was noted with clear yellow urine. Excellent hemostasis was obtained. A vaginal pack is placed overnight as postoperative support for the vaginal tissues after closure of vaginal incisions. Sponge, lap, needle, and instrument counts were correct times three. The patient was taken to the recovery room, awake and in stable condition.
--- NOTE | 2024-09-16 14:25 | ANE.PACU2 ---
Inpatient post-anesthesia follow up: Airway intact: Yes Vital signs: Temperature 98.7 F Pulse Rate 57 Respiratory Rate 16 Blood Pressure 122/62 Pulse Oximetry 96 Oxygen Delivery Me thod Room Air Oxygen Flow Rate 8 Fraction of Inspir ed Oxygen Hydration adequate: Yes Nausea and vomiting: No Pain level: 1 Mental status: Baseline
--- NOTE | 2024-09-16 14:40 | PC.NURSE ---
1430 - accepted into room OB 7 with LIA Isbell - no distress noted to patient upon this nurse exiting - BP 129/69 - pulse 62 - 96% - temp 97.9
[2024-09-16] MEDS: ketorolac 30 mg/mL INJ IVP ×2 (14:41→21:09)
[2024-09-16] MEDS: HYDROcodone-acetaminophen 5-325 mg Tablet PO ×2 (16:53→23:49)
[2024-09-16] MEDS: docusate sodium 100 mg Capsule PO (17:49)
[2024-09-17] MEDS: ketorolac 30 mg/mL INJ IVP (02:58)
[2024-09-17 04:58] VITALS: BP 122/62; PULSE 57; RESP 16; TEMP 37.1; O2SAT 96
--- NOTE | 2024-09-17 04:59 | PC.NURSE ---
packing removed at this time
[2024-09-17 05:06] LABS: Hematocrit 38.5 % (36-47); Mean Corpuscular HGB Conc 32.7 g/dL (30-55); Mean Corpuscular Hemoglobin 28.4 pg (27-33); Mean Corpuscular Volume 86.9 fl (85-98); Mean Platelet Volume 10.2 fL (7.4-10.4); Platelet Count 249 10^3/cmm (157-399); Red Blood Count 4.43 10^6/uL (3.85-5.65); Red Cell Distribution Width 12.7 % (12.1-15.1); White Blood Count 9.29 10^3/uL (3.29-11.43)
[2024-09-17] MEDS: HYDROcodone-acetaminophen 5-325 mg Tablet PO (07:01)
[2024-09-17] MEDS: docusate sodium 100 mg Capsule PO (09:25)
[2024-09-17] MEDS: amlodipine 5 mg Tablet PO (09:25)
[2024-09-17] MEDS: ibuprofen 800 mg tablet PO (10:59)
--- NOTE | 2024-09-17 11:15 | P.DS_ITS ---
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 Bernal 44-year-old female with a history of granulating tissue growth and possible mid urethral sling exposure. Admitted for revision of sling scar. Only granulating tissue was noted no exposure of sling was visible. Granulating tissue was excised and cauterized without complications. Overnight observation was uneventful. She is afebrile and hemodynamically stable postoperative day 1. PVR within normal limits. Tolerating diet well. Ambulating without difficulty. She was counseled regarding pelvic rest for 6 weeks (no sex, no tampons, no vaginal douches). Return to the emergency room if any fever, increased bleeding or pain. Physical Exam Narrative: GA: Alert and oriented ?3. HEENT: WNL. Heart: Regular rate and rhythm. Lungs: Clear to auscultation bilaterally. Abdomen: Bowel sounds present, nontender. [employer]: spotting bleeding. Extremities: No edema, no cyanosis, no calves pain. Urinary Catheter Management: Cohen: Cath Placed During This Visit: yes, but has since been removed by the nurse Reason for Continuing Indwelling Catheter: Decision to DC Catheter Urinary Catheter Date of Insertion: 09/16/24 Urinary Catheter Time of Insertion: 13:20 Date Urinary Catheter Removed: 09/16/24 Time Urinary Catheter Discontinued: 18:00 History History History 2 Term 2 0 Miscarriages/Ectopic 0 Living Children 2 Discharge Data Studies Completed and Pending Pending at discharge Category Date Time Status Pathology: Surgical [PTH] Routine Pth 09/16/24 13:56 Received Laboratory Results WBC 9.29 10^3/uL (3.29-11.43) 09/17/24 04:58 RBC 4.43 10^6/uL (3.85-5.65) 09/17/24 04:58 Hgb 12.60 g/dL (11.27-16.99) 09/17/24 04:58 Hct 38.5 % (36-47) 09/17/24 04:58 MCV 86.9 fl (85-98) 09/17/24 04:58 MCH 28.4 pg (27-33) 09/17/24 04:58 MCHC 32.7 g/dL (30-55) 09/17/24 04:58 RDW 12.7 % (12.1-15.1) 09/17/24 04:58 Plt Count 249 10^3/cmm (157-399) 09/17/24 04:58 MPV 10.2 fL (7.4-10.4) 09/17/24 04:58 Neut % (Auto) 66.1 % 09/16/24 11:25 Lymph % (Auto) 25.1 % 09/16/24 11:25 [place] % (Auto) 5.4 % 09/16/24 11:25 Eos % (Auto) 2.2 % 09/16/24 11:25 Baso % (Auto) 0.9 % 09/16/24 11:25 Neut # (Auto) 5.12 10^3/uL (1.8-7.7) 09/16/24 11:25 Lymph # (Auto) 1.9 10^3/uL (0.8-4.8) 09/16/24 11:25 [place] # (Auto) 0.4 10^3/uL (0.2-0.9) 09/16/24 11:25 Eos # (Auto) 0.2 10^3/uL (0.0-0.8) 09/16/24 11:25 Baso # (Auto) 0.1 10^3/uL (0.0-0.1) 09/16/24 11:25 Nucleated RBC % (auto) 0 % 09/16/24 11:25 Nucleated RBCs # 0.0 /100WBC 09/16/24 11:25 Sodium 140 mmol/L (136-145) 09/16/24 11:25 Potassium 4.0 mmol/L (3.5-5.1) 09/16/24 11:25 Chloride 101 mmol/L (98-107) 09/16/24 11:25 Carbon Dioxide 26 mmol/L (22-29) 09/16/24 11:25 Anion Gap 17.0 (5-19) 09/16/24 11:25 BUN 14 mg/dL (6-20) 09/16/24 11:25 Creatinine 0.6 mg/dL (0.5-0.9) 09/16/24 11:25 GFR Calculation 107.6 mL/min (90-130) 09/16/24 11:25 Glucose 102 mg/dL (65-115) 09/16/24 11:25 Calculated Osmolality 291 mOsm/kg (285-295) 09/16/24 11:25 Calcium 9.2 mg/dL (8.5-10.5) 09/16/24 11:25 Total Bilirubin 0.3 mg/dL (0.15-1.2) 09/16/24 11:25 AST 24 U/L (0-32) 09/16/24 11:25 ALT 28 U/L (0-33) 09/16/24 11:25 Alkaline Phosphatase 72 U/L (35-105) 09/16/24 11:25 Total Protein 7.8 g/dL (6.6-8.7) 09/16/24 11:25 Albumin 4.4 g/dL (3.5-5.2) 09/16/24 11:25 Globulin 3.4 g/dL (1.3-4.6) 09/16/24 11:25 Blood Type O Positive 09/16/24 11:25 Rho(D) Type Rh positive 09/16/24 11:25 Antibody Screen Negative 09/16/24 11:25 Vitals Last Vital Signs Temp 98.7 F 09/17/24 04:58 Pulse 57 L 09/17/24 04:58 Resp 16 09/17/24 04:58 BP 122/62 09/17/24 04:58 Pulse Ox 96 09/17/24 04:58 O2 Del Method Room Air 09/17/24 04:58 O2 Flow Rate 8 09/16/24 13:56 Results Labs OB ([facility]): Blood Type O Positive 09/16/24 Antibody Screen Negative 09/16/24 Hct 38.5 % (36-47) 09/17/24 Hgb 12.60 g/dL (11.27-16.99) 09/17/24 Rho(D) Type Rh positive 09/16/24 Plt Count 249 10^3/cmm (157-399) 09/17/24 TSH 0.79 uIU/mL (0.27-4.20) 01/07/24 C.trachomatis RNA (TMA) Not detected (NOT DETECTED) N.gonorrhoeae RNA (TMA) Not detected (NOT DETECTED) T. vaginalis Amp RNA Not detected (NOT DETECTED) 04/29/24 Chlamydia/GC Comment See note 04/29/24 Hemoglobin A1c 6.4 % (4.0-6.0) H 01/07/24 Micro Urine Specimen 05/09/24 Pap Smear Interpret See note A 05/11/23 Prolactin 7.35 ng/mL (4.8-23.3) 05/11/23 Discharge Plan Discharge Patient Disposition: Home Condition: Stable Prescriptions: New acetaminophen 325 mg capsule 325 mg PO Q4H PRN (Reason: Postoperative fever or pain) Qty: 60 0RF ibuprofen 800 mg tablet 800 mg PO TID PRN (Reason: pain) Qty: 60 0RF Continued ibuprofen-acetaminophen [Dual Action Pain Reliever] 125-250 mg tablet 1 tab PO DAILY Zyrtec 10 mg capsule 10 mg PO DAILY PRN (Reason: allergies) Osteo Bi-Flex Triple Strength 750 mg-644 mg- 30 mg-1 mg tablet 1 tab PO BID cholecalciferol (vitamin D3) 325 mcg (13,000 unit) capsule 325 mcg PO DAILY estradiol [Estrace] 0.01 % (0.1 mg/gram) cream 1 g vaginal .COMPLEX Qty: 42.5 3RF Rx Instructions: insert 1 gram at hs for 14 nights then 2-3 times weekly-- space out doses amlodipine 5 mg tablet 5 mg PO DAILY Rx Instructions: Take 1 tablet by mouth once daily Discharge Orders: Discharge Order (Routine); Ordered 09/17/24 Ordered By: Roberto Carlos De La Garza Referrals: Jacqui Sullivan APN, ARCHIE [Nurse Practitioner] - 09/30/24 10:00 am Discharge Diet: Usual diet Discharge Activity: Limit activity as instructed Patient Instructions: Acute Wound Care (DC), Opioid Safety (DC), OB Discharge Report, OB Food/Drug Interaction Guide, Opioid Safety, Post Anesthesia Care Activity Restrictions/Additional Instructions: 1. Please call [facility] on next working day to make your post-operative appointment in 2 weeks. 2. Please stay home until you come back to the clinic on first post- hospatilization check up. 3. Please follow instructions on your medications CAREFULLY. 4. If you have abdominal incision, do not cover it unless dressing is necessary because of drainage. OK to shower, but avoid bath. Leave steri-strips until they fall off. If they are still on one week after surgery, you may remove them. 5. If you had vaginal surgery or vaginal repair, Dr. De La Garza may instruct you to take SITZ bath. 6. Yellow, blood tinged odorous vaginal discharge is usually normal after hysterectomy or vaginal surgeries. 7. No SEXUAL INTERCOURSE, tampons, or douches until you are completely released from the post-operative care. 8. Avoid constipation by eating right and maybe using some Metamucil or Milk of Magnesia. 9. All prescription refills are given during the working hours. Please do no wait till it runs out. Call the clinic at [phone] before your medication runs out. The clinic will get in touch with your doctor to prescribe medications if necessary. 10. Please remain within 40 mile radius from our hospital because emergencies do happen now and then during the post-operative period. 11. If you have stairs at home, take one step at a time slowly and minimize the number of trips. It helps to stay in one floor for the next few days. No lifting except what you can lift by one hand until you are released from the post-operative care. 12. Driving is discouraged until you are well healed. It may be 3-4 weeks before you feel strong enough to drive. You should be able to turn and look through the rear window without pain and you should be able to push the brake pedal very hard without pain before you drive. No fast rules, but SAFETY should be your primary concern. DO NOT drive if you are on sedating medications such as narcotics. 13. Call the clinic (during working hours) to make urgent appointment or go to the Emergency room, if any of the following occurs: i. Vaginal bleeding becomes heavy, more than a period. ii. Incision becomes red and sore, or drains pus. iii. Your TEMPERATURE is over 100.4F or you have chill. iv. IV site becomes red and swollen (a little ``knot?? is usually OK) v. Persistent nausea and vomiting vi. Persistent constipation or diarrhea vii. Rash or allergic reaction to medications. 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
[2024-09-17 11:30] VITALS: BP 159/75; PULSE 57; RESP 16; TEMP 36.6; O2SAT 98
== END 2024-09-17 11:38 | disposition home or self-care (01) ==
LOC: OBGYN 13:43
PROVIDERS: Admitting Provider Obstetrics & Gynecology; PCP Nurse Practitioner Family; Visit Provider Obstetrics & Gynecology
PROC: (CPT 57288; principal; 2024-09-16 13:50)
PROC: (CPT 17250; 2024-09-16 13:50)
DX: N89.8 Other specified noninflammatory disorders of vagina (principal); E11.9 Type 2 diabetes mellitus without complications; F17.290 Nicotine dependence, other tobacco product, uncomplicated; I10 Essential (primary) hypertension; Z79.899 Other long term (current) drug therapy; Z88.5 Allergy status to narcotic agent; Z90.710 Acquired absence of both cervix and uterus; Z90.49 Acquired absence of other specified parts of digestive tract
CPT/HCPCS: 57061; 36415; 80053; 85025; 85027; 86850; 86900; 96374; A4216; G0378; J0690; J1100; J1885; J2250; J2405; J2704; J3010; J7030

== ENCOUNTER → 2024-11-27 15:28 | Outpatient (BNVA) | payer BC, SELFPAY | PROVIDERS: PCP Nurse Practitioner Family; Visit Provider Nurse Practitioner Family | DX: I10 Essential (primary) hypertension (principal); E78.2 Mixed hyperlipidemia; E11.9 Type 2 diabetes mellitus without complications; D64.9 Anemia, unspecified | CPT/HCPCS: 81003; 82607; 82746; 83036; 83550; 84443; 85025 ==